=== PATIENT | female | born 1945 | race Caucasian/White ===

== ENCOUNTER → 2024-08-29 15:42 | Outpatient (REF) | payer OTHER, SELFPAY | LOC: HWRAD 15:42 | PROVIDERS: ATTENDING PHYSICIAN Internal Medicine Critical Care Medicine; FAMILY PHYSICIAN Family Medicine | DX: J44.9 Chronic obstructive pulmonary disease, unspecified (principal) | CPT/HCPCS: 71046 ==

== ENCOUNTER 2025-06-23 22:01 | Inpatient (IN) | payer OTHER, SELFPAY ==
[2025-06-23] VITALS (7 sets, daily range): BP systolic 98–163; BP diastolic 63–107; BMI 36.7; BMI 33.9
[2025-06-23 17:13] LABS: INR 1.08; PT 14.3 Sec (11.4-14.6)
[2025-06-23 17:17] LABS: ALT (SGPT) 25 U/L (0-35); AST (SGOT) 23 U/L (14-36); Albumin 4.0 g/dl (3.5-5.0); Alkaline Phosphatase 84 U/L (38-126); Blood Urea Nitrogen 40 mg/dl (7-17); Calcium 9.7 mg/dl (8.4-10.2); Carbon Dioxide 27 mmol/L (22-30); Chloride 107 mmol/L (98-107); Glucose 117 mg/dl (70-99); Potassium 4.0 mmol/L (3.5-5.1); Sodium 140 mmol/L (135-145); Total Protein 7.0 g/dl (6.3-8.2); eGFR > 60.00
[2025-06-23 18:01] LABS: Hematocrit 40.9 % (37.0-47.0); Hemoglobin 13.1 g/dL (12.0-16.0); Mean Corp Hgb Conc. 32.0 g/dL (33.0-37.0); Mean Corpuscular Volume 97.8 fL (81.0-99.0); Nucleated Red Blood Cells % 0 %; Platelet Count 222 10^3/uL (130-400); Red Cell Dist. Width 13.1 % (11.5-14.5)
[2025-06-23 18:07] LABS: D-Dimer 2.82 ug/mlFEU (0.00-0.50)
[2025-06-23 18:43] LABS: Troponin I 0.053 ng/ml
[2025-06-23] MEDS: BENADRYL 25 MG IV (19:13)
[2025-06-23] MEDS: SOLU-CORTEF 200 MG IV (19:13)
--- NOTE | 2025-06-23 21:02 | ED.GENMED ---
History of Present Illness
<German Doyle PA-C - Last Filed: 06/24/25 00:07>
General
Chief Complaint: Breathing Problem
Time Seen by Provider: 06/23/25 17:15
History of Present Illness
History of Present Illness:
80-year-old female with history of COPD, former tobacco use, and hypertension presents to the emergency department for evaluation of gradually worsening shortness of breath over the past 2 weeks. She states that 2 weeks ago she suffered a left
elbow dislocation and since that fall has been generally immobile. She has a distant history of PE after knee replacement surgery but states she was not anticoagulated for this. Denies chest pain but does report bilateral leg edema. No fevers or
chills.
Past History
<German Doyle PA-C - Last Filed: 06/24/25 00:07>
Past History
ED Past Medical History: Asthma, HTN and Other (Sleep apnea )
ED Past Surgical History: Appendectomy, Bowel resection (X2 for adhesions ), Cholecystectomy and Gynecological (Hysterectomy followed by an oophorectomy )
Patient has exhibited threatening behavior?: No
PSI?: No
Social History
Tobacco: Former smoker
Alcohol: Occasional
Personal:
Living: with family
Employment: Employed
Family History
Family History: Diabetes and Cancer; Negative Hypertension, Early CAD, Asthma or Sudden
Review of Systems
<German Doyle PA-C - Last Filed: 06/24/25 00:07>
Review of Systems
Allergies reviewed?: Yes
All Other Systems: ROS reviewed and negative except as documented in HPI and ROS
Phy Exam
<German Doyle PA-C - Last Filed: 06/24/25 00:07>
Physical Exam
Physical Exam:
GEN: Well appearing, NAD, WDWN
HEENT: Oral mucosa moist, no scleral icterus
Cardiac: Tachycardic, regular
Lung: Tachypneic with pursed lip breathing, clear lungs globally
MSK: Bilateral lower extremity edema
Skin: Good color, no pallor or jaundice, no rashes
Neuro: AO x3, moves all extremities freely
Psych: Calm, cooperative
Scores
<German Doyle PA-C - Last Filed: 06/24/25 00:07>
Heart Failure Risk
Heart Failure Risk Score: Not Applicable
Course
<German Doyle PA-C - Last Filed: 06/24/25 00:07>
Orders/Labs/Results
Orders:
Orders
06/23/25 Breakfast
Regular
At Your Request: Full Participation
06/23/25 16:45
Electrocardiogram (*1) Urgent
Reason for Study: Chest Pain
EKG- Treatment ONCE
06/23/25 16:52
Comprehensive Metabolic Panel Urgent
D-Dimer Urgent
Comment: ADD ON
Prothrombin Time Urgent
06/23/25 17:45
Add On- LAB Urgent
Tests Added?: D Dimer, BNP
06/23/25 17:53
Complete Blood Count/With Diff Urgent
NT-proBNP Urgent
Comment: ADD ON
Troponin I Urgent
06/23/25 18:18
CT Chest PE Study Urgent
Comment:
Reason For Exam: SOB, elevated d dimer
06/23/25 18:38
Diphenhydramine [Benadryl] 25 mg IV NOW STA
Hydrocortisone Sod Succinate [Solu-Cortef] 200 mg IV NOW STA
06/23/25 20:35
Heparin 8,000 units IV NOW STA
Nursing to Place Non Medication Order As Directed
Physician Order: PTT 6 hours after initial start of Heparin infusion
Above order entered?: Yes
06/23/25 20:41
Miscellaneous Order As Directed
Miscellaneous order: PTT 6 hours after initial start of Heparin infusion
06/23/25 20:45
Heparin 27972 Units/250 ml 25,000 units in 250 ml IV PER PROTOCOL
Weight to be used for heparin protocol in kilograms (kg):: 100.1
Protocol:: DVT/PE
PTT Goal Range to be used:: PTT 73 to 111 seconds
Order type:: Initial
INITIAL Infusion Dose (UNITS/KG/hr) & then follow protocol:: 18 units/kg/hr
Infusion Dose in UNITS/hr & then follow protocol (UNITS/hr):: 1,800
INFUSION RATE in mL/hr & then follow protocol (mL/hr):: 18
For DVT/PE algorithm, re-bolus for low PTT?: Yes
PTT less than or equal to 64 seconds:: Re-bolus 80 units/kg (max 10,000units). Increase by 400 units/hr
(+ 4mL/hr)
PTT 64.1 to 72.9 seconds:: Re-bolus 40 units/kg (max 5,000 units). Increase by 200 units/hr
(+ 2mL/hr)
PTT 73 to 111 seconds:: Target Range. No change in rate.
PTT 111.1 to 130.9 seconds:: Decrease rate by 200 units/hr (- 2 mL/hr)
PTT 131 to 199.9 seconds:: HOLD for 1 hr. Then decrease by 300 units/hr (- 3mL/hr)
PTT greater than or equal to 200 seconds:: HOLD for 2 hrs & Notify Provider. Then decrease by 400 units/hr
(- 4mL/hr)
Lab follow-up:: Each change, PTT q6h until 2 consecutive are therapeutic. Then
PTT daily.
06/23/25 20:49
PTT Urgent
Comment: Obtain baseline before beginning heparin infusion if not already collected
06/23/25 21:10
Heparin 4,000 units IV PRN PRN
Heparin 8,000 units IV PRN PRN
06/23/25 21:35
Admit/Transfer Patient As Directed
Co-Sign Provider:
Level of Care: Inpatient admission
Assign to:: IMU- Intermediate Care
Physician / Group: jose
Diagnosis: acute hypoxia
Reason for Hospitalization: acute hypoxia secondary to PE
Expected length of stay greater than two midnights?: Yes
ELOS- Estimated Length of Stay in days: 3
I certify the patient meets the requirements for IP care: Yes
PRN Pain Medication Management As Directed
May give lesser potent ordered pain med per pt: Yes
preference::
Protocol:: Medication orders for pain may be administered in a
manner that supports deferring to patient preference
when the pt is:
- Requesting an ordered lesser potent pain medication.
Least to most potent pain medications are defined
as: acetaminophen < NSAID < tramadol < opioids
(morphine, oxycodone, hydromorphone).
- Requesting a lesser dose of the same medication IF
ORDERED.
- Requesting a less intrusive route of administration
if both routes are prescribed by the provider (PO <
IV).
06/23/25 21:37
Code Status As Directed
Resuscitation Status: Limited DNR
Limited DNR: -No intubation
06/23/25 22:51
Acetaminophen [Tylenol] 650 mg PO Q4HPRN PRN
Gabapentin [Neurontin] 200 mg PO DAILYPRN PRN mild pain
Montelukast Sodium [Singulair] 10 mg PO HS
06/23/25 22:51
Echo 2D MMode Color/Doppler Routine
Reason for Study: pulmonary embolism
Heparin Protocol- PTT Orders As Directed
PTT per Heparin protocol: -Obtain CBC and baseline PTT - if not already collected.
-Obtain PTT 6 hours from start of infusion. Then, every 6 hours until 2 consecutive
PTT's are therapeutic. Then, PTT Daily.
-With each rate change, obtain PTT every 6 hours until 2 consecutive PTT's are
therapeutic. Then, PTT Daily.
Activity As Directed
Activity Level: As Tolerated
Bladder Scan As Directed
Follow Bladder Retention/Intermittent Cath Algorithm?: Yes
Frequency: Per Retention Algorithm
Comment: as per intermittent urinary catheter algorithm
Bladder Scan As Directed
Follow Bladder Retention/Intermittent Cath Algorithm?: Yes
PRN if no void in __ hours: 6
Frequency: Per Retention Algorithm
If Bladder Scan Result >: 400
then:: Straight cath
Intake/ Output As Directed
Frequency: Per unit guidelines
Notify MD As Directed
Notify physician if: PTT is greater than or equal to 200.
Straight Cath As Directed
Frequency: Per Retention Algorithm
Additional Instructions: as per intermittent urinary catheter algorithm
Straight Cath As Directed
Frequency: Per Retention Algorithm
Additional Instructions: straight cath as needed per acute urinary retention algorithm for 24 hrs
Additional Instructions: for bladder scan greater than 400 mL
Vital Signs As Directed
Frequency: Per unit guidelines
Cpap [RESP] Routine
Patient to use own unit?: No
Set Pressure (cm H2O): 4
O2 Therapy [RESP] Routine
Titrate/Wean O2 to maintain O2 sat greater than (%): 90
Pt Eval And Treat Routine
Activity Level: As Tolerated
US Periph Venous LOWER Ext Brett Routine
Comment:
Reason For Exam: DVT/PE
06/23/25 23:26
Troponin I Q4H
06/24/25 02:51
Troponin I Q4H
06/24/25 03:45
PTT Urgent
Comment: heparin gtt
06/24/25 06:00
Complete Blood Count/No Diff IN AM
06/24/25 06:51
Troponin I Q4H
06/24/25 08:00
Albuterol Nebs [Ventolin Nebules] 2.5 mg INH R QID
Cetirizine HCl [Zyrtec] 10 mg PO DAILY
Cholecalciferol (Vitamin D3) [VITAMIN D3 (cholecalciferol)] 50 mcg PO DAILY
Lisinopril [Zestril] 10 mg PO DAILY
Tiotropium [place] 2.5 Mcg [Spiriva Respimat 2.5 Mcg] 2 puff INH R DAILY
06/25/25 06:00
Complete Blood Count/No Diff IN AM
Complete Blood Count/No Diff Q2D
Comment: notify provider: Platelet count < 130,000 or decrease by 50% from baseline
06/26/25 06:00
Complete Blood Count/No Diff IN AM
06/27/25 06:00
Complete Blood Count/No Diff Q2D
Comment: notify provider: Platelet count < 130,000 or decrease by 50% from baseline
06/29/25 06:00
Complete Blood Count/No Diff Q2D
Comment: notify provider: Platelet count < 130,000 or decrease by 50% from baseline
07/01/25 06:00
Complete Blood Count/No Diff Q2D
Comment: notify provider: Platelet count < 130,000 or decrease by 50% from baseline
07/03/25 06:00
Complete Blood Count/No Diff Q2D
Comment: notify provider: Platelet count < 130,000 or decrease by 50% from baseline
07/05/25 06:00
Complete Blood Count/No Diff Q2D
Comment: notify provider: Platelet count < 130,000 or decrease by 50% from baseline
07/07/25 06:00
Complete Blood Count/No Diff Q2D
Comment: notify provider: Platelet count < 130,000 or decrease by 50% from baseline
07/09/25 06:00
Complete Blood Count/No Diff Q2D
Comment: notify provider: Platelet count < 130,000 or decrease by 50% from baseline
Abnormal Lab Results
06/23/25 06/23/25
16:52 17:53
WBC 14.9 H 10^3/uL
(4.8-10.8)
RBC 4.18 L 10^6/uL
(4.20-5.40)
MCH 31.3 H pg
(27.0-31.0)
MCHC 32.0 L g/dL
(33.0-37.0)
Abs Immat Gran (auto) 0.1 H 10^3/uL
(0-0.05)
Absolute Neuts (auto) 12.6 H 10^3/uL
(1.4-6.5)
Immature Gran % 0.7 H %
(0-0.5)
Neutrophils % 84.4 H %
(42.2-75.2)
Lymphocytes % 10.1 L %
(20.5-51.1)
D-Dimer 2.82 H ug/mlFEU
(0.00-0.50)
BUN 40 H mg/dl
(7-17)
Glucose 117 H mg/dl
(70-99)
Troponin I 0.053 H* ng/ml
06/23/25 17:53
06/23/25 16:52
Vital Signs
Initial and Last Documented VS:
Initial Vital Signs
Temp Pulse Resp BP Pulse Ox
98.4 F 115 20 112/77 95
06/23/25 16:42 06/23/25 16:42 06/23/25 16:42 06/23/25 16:42 06/23/25 16:42
Last Documented Vital Signs
Temp Pulse Resp BP Pulse Ox
98.1 F 109 24 163/93 94
06/23/25 22:54 06/23/25 22:30 06/23/25 22:30 06/23/25 22:00 06/23/25 23:07
<Johan Lisa, DO - Last Filed: 06/23/25 21:17>
Orders/Labs/Results
Orders:
Orders
06/23/25 Breakfast
Regular
At Your Request: Full Participation
06/23/25 16:45
Electrocardiogram (*1) Urgent
Reason for Study: Chest Pain
EKG- Treatment ONCE
06/23/25 16:52
Comprehensive Metabolic Panel Urgent
D-Dimer Urgent
Comment: ADD ON
Prothrombin Time Urgent
06/23/25 17:45
Add On- LAB Urgent
Tests Added?: D Dimer, BNP
06/23/25 17:53
Complete Blood Count/With Diff Urgent
NT-proBNP Urgent
Comment: ADD ON
Troponin I Urgent
06/23/25 18:18
CT Chest PE Study Urgent
Comment:
Reason For Exam: SOB, elevated d dimer
06/23/25 18:38
Diphenhydramine [Benadryl] 25 mg IV NOW STA
Hydrocortisone Sod Succinate [Solu-Cortef] 200 mg IV NOW STA
06/23/25 20:35
Heparin 8,000 units IV NOW STA
Nursing to Place Non Medication Order As Directed
Physician Order: PTT 6 hours after initial start of Heparin infusion
Above order entered?: Yes
06/23/25 20:41
Miscellaneous Order As Directed
Miscellaneous order: PTT 6 hours after initial start of Heparin infusion
06/23/25 20:45
Heparin 34898 Units/250 ml 25,000 units in 250 ml IV PER PROTOCOL
Weight to be used for heparin protocol in kilograms (kg):: 100.1
Protocol:: DVT/PE
PTT Goal Range to be used:: PTT 73 to 111 seconds
Order type:: Initial
INITIAL Infusion Dose (UNITS/KG/hr) & then follow protocol:: 18 units/kg/hr
Infusion Dose in UNITS/hr & then follow protocol (UNITS/hr):: 1,800
INFUSION RATE in mL/hr & then follow protocol (mL/hr):: 18
For DVT/PE algorithm, re-bolus for low PTT?: Yes
PTT less than or equal to 64 seconds:: Re-bolus 80 units/kg (max 10,000units). Increase by 400 units/hr
(+ 4mL/hr)
PTT 64.1 to 72.9 seconds:: Re-bolus 40 units/kg (max 5,000 units). Increase by 200 units/hr
(+ 2mL/hr)
PTT 73 to 111 seconds:: Target Range. No change in rate.
PTT 111.1 to 130.9 seconds:: Decrease rate by 200 units/hr (- 2 mL/hr)
PTT 131 to 199.9 seconds:: HOLD for 1 hr. Then decrease by 300 units/hr (- 3mL/hr)
PTT greater than or equal to 200 seconds:: HOLD for 2 hrs & Notify Provider. Then decrease by 400 units/hr
(- 4mL/hr)
Lab follow-up:: Each change, PTT q6h until 2 consecutive are therapeutic. Then
PTT daily.
06/23/25 20:49
PTT Urgent
Comment: Obtain baseline before beginning heparin infusion if not already collected
06/23/25 21:10
Heparin 4,000 units IV PRN PRN
Heparin 8,000 units IV PRN PRN
06/23/25 21:35
Admit/Transfer Patient As Directed
Co-Sign Provider:
Level of Care: Inpatient admission
Assign to:: IMU- Intermediate Care
Physician / Group: jose
Diagnosis: acute hypoxia
Reason for Hospitalization: acute hypoxia secondary to PE
Expected length of stay greater than two midnights?: Yes
ELOS- Estimated Length of Stay in days: 3
I certify the patient meets the requirements for IP care: Yes
PRN Pain Medication Management As Directed
May give lesser potent ordered pain med per pt: Yes
preference::
Protocol:: Medication orders for pain may be administered in a
manner that supports deferring to patient preference
when the pt is:
- Requesting an ordered lesser potent pain medication.
Least to most potent pain medications are defined
as: acetaminophen < NSAID < tramadol < opioids
(morphine, oxycodone, hydromorphone).
- Requesting a lesser dose of the same medication IF
ORDERED.
- Requesting a less intrusive route of administration
if both routes are prescribed by the provider (PO <
IV).
06/23/25 21:37
Code Status As Directed
Resuscitation Status: Limited DNR
Limited DNR: -No intubation
06/23/25 22:51
Acetaminophen [Tylenol] 650 mg PO Q4HPRN PRN
Gabapentin [Neurontin] 200 mg PO DAILYPRN PRN mild pain
Montelukast Sodium [Singulair] 10 mg PO HS
06/23/25 22:51
Echo 2D MMode Color/Doppler Routine
Reason for Study: pulmonary embolism
Heparin Protocol- PTT Orders As Directed
PTT per Heparin protocol: -Obtain CBC and baseline PTT - if not already collected.
-Obtain PTT 6 hours from start of infusion. Then, every 6 hours until 2 consecutive
PTT's are therapeutic. Then, PTT Daily.
-With each rate change, obtain PTT every 6 hours until 2 consecutive PTT's are
therapeutic. Then, PTT Daily.
Activity As Directed
Activity Level: As Tolerated
Bladder Scan As Directed
Follow Bladder Retention/Intermittent Cath Algorithm?: Yes
Frequency: Per Retention Algorithm
Comment: as per intermittent urinary catheter algorithm
Bladder Scan As Directed
Follow Bladder Retention/Intermittent Cath Algorithm?: Yes
PRN if no void in __ hours: 6
Frequency: Per Retention Algorithm
If Bladder Scan Result >: 400
then:: Straight cath
Intake/ Output As Directed
Frequency: Per unit guidelines
Notify MD As Directed
Notify physician if: PTT is greater than or equal to 200.
Straight Cath As Directed
Frequency: Per Retention Algorithm
Additional Instructions: as per intermittent urinary catheter algorithm
Straight Cath As Directed
Frequency: Per Retention Algorithm
Additional Instructions: straight cath as needed per acute urinary retention algorithm for 24 hrs
Additional Instructions: for bladder scan greater than 400 mL
Vital Signs As Directed
Frequency: Per unit guidelines
Cpap [RESP] Routine
Patient to use own unit?: No
Set Pressure (cm H2O): 4
O2 Therapy [RESP] Routine
Titrate/Wean O2 to maintain O2 sat greater than (%): 90
Pt Eval And Treat Routine
Activity Level: As Tolerated
US Periph Venous LOWER Ext Brett Routine
Comment:
Reason For Exam: DVT/PE
06/23/25 23:26
Troponin I Q4H
06/24/25 02:51
Troponin I Q4H
06/24/25 03:45
PTT Urgent
Comment: heparin gtt
06/24/25 06:00
Complete Blood Count/No Diff IN AM
06/24/25 06:51
Troponin I Q4H
06/24/25 08:00
Albuterol Nebs [Ventolin Nebules] 2.5 mg INH R QID
Cetirizine HCl [Zyrtec] 10 mg PO DAILY
Cholecalciferol (Vitamin D3) [VITAMIN D3 (cholecalciferol)] 50 mcg PO DAILY
Lisinopril [Zestril] 10 mg PO DAILY
Tiotropium [place] 2.5 Mcg [Spiriva Respimat 2.5 Mcg] 2 puff INH R DAILY
06/25/25 06:00
Complete Blood Count/No Diff IN AM
Complete Blood Count/No Diff Q2D
Comment: notify provider: Platelet count < 130,000 or decrease by 50% from baseline
06/26/25 06:00
Complete Blood Count/No Diff IN AM
06/27/25 06:00
Complete Blood Count/No Diff Q2D
Comment: notify provider: Platelet count < 130,000 or decrease by 50% from baseline
06/29/25 06:00
Complete Blood Count/No Diff Q2D
Comment: notify provider: Platelet count < 130,000 or decrease by 50% from baseline
07/01/25 06:00
Complete Blood Count/No Diff Q2D
Comment: notify provider: Platelet count < 130,000 or decrease by 50% from baseline
07/03/25 06:00
Complete Blood Count/No Diff Q2D
Comment: notify provider: Platelet count < 130,000 or decrease by 50% from baseline
07/05/25 06:00
Complete Blood Count/No Diff Q2D
Comment: notify provider: Platelet count < 130,000 or decrease by 50% from baseline
07/07/25 06:00
Complete Blood Count/No Diff Q2D
Comment: notify provider: Platelet count < 130,000 or decrease by 50% from baseline
07/09/25 06:00
Complete Blood Count/No Diff Q2D
Comment: notify provider: Platelet count < 130,000 or decrease by 50% from baseline
Abnormal Lab Results
06/23/25 06/23/25
16:52 17:53
WBC 14.9 H 10^3/uL
(4.8-10.8)
RBC 4.18 L 10^6/uL
(4.20-5.40)
MCH 31.3 H pg
(27.0-31.0)
MCHC 32.0 L g/dL
(33.0-37.0)
Abs Immat Gran (auto) 0.1 H 10^3/uL
(0-0.05)
Absolute Neuts (auto) 12.6 H 10^3/uL
(1.4-6.5)
Immature Gran % 0.7 H %
(0-0.5)
Neutrophils % 84.4 H %
(42.2-75.2)
Lymphocytes % 10.1 L %
(20.5-51.1)
D-Dimer 2.82 H ug/mlFEU
(0.00-0.50)
BUN 40 H mg/dl
(7-17)
Glucose 117 H mg/dl
(70-99)
Troponin I 0.053 H* ng/ml
06/23/25 17:53
06/23/25 16:52
Vital Signs
Initial and Last Documented VS:
Initial Vital Signs
Temp Pulse Resp BP Pulse Ox
98.4 F 115 20 112/77 95
06/23/25 16:42 06/23/25 16:42 06/23/25 16:42 06/23/25 16:42 06/23/25 16:42
Last Documented Vital Signs
Temp Pulse Resp BP Pulse Ox
98.1 F 109 24 163/93 94
06/23/25 22:54 06/23/25 22:30 06/23/25 22:30 06/23/25 22:00 06/23/25 23:07
<German Doyle PA-C - Last Filed: 06/24/25 00:07>
MDM/Problems Addressed
MDM/Problems Addressed:
Due to elevated D-dimer and as well as elevated cardiac enzymes the patient was sent for a CT of the chest which confirmed bilateral PEs. She does have evidence for mild right heart strain however is not hemodynamically unstable to warrant
thrombolysis at this juncture. IV heparin initiated and she will be admitted to the hospitalist service for further management
<German Doyle PA-C - Last Filed: 06/24/25 00:07>
Comment
Comment:
EKG independently interpreted by me shows a sinus tachycardia with nonspecific ST depressions
*Pulse Oximetry
SaO2: 92
Oxygen Mode of Delivery: Room air
<Johan Lisa DO - Last Filed: 06/23/25 21:17>
*Radiology
Radiology exam reviewed: radiology read reviewed
*Pulse Oximetry
SaO2: 89
Patient hypoxic: yes
*EKG
Interpreted by ED Provider?: Yes
Interpretation: abnormal
Comparison EKG: no comparison EKG present
Heart Rate: 78
Rate: normal
Rhythm: sinus
Ischemia: non-specific ST changes
*Engine Assembly Supervisor Interpretation
Rate: normal
Interpretation: normal
Heart Rate: 78
Rhythm: sinus
*Critical Care Note
Total Time (30-74mins, 75-104mins- exclusive of procedures): 32
ED Attending Note
<German Doyle PA-C - Last Filed: 06/24/25 00:07>
-
Portions of this chart may have been created with voice recognition software.� Occasional wrong word or��sound alike� substitutions may have occurred due to the inherent limitations of voice recognition software.
<Johan Lisa DO - Last Filed: 06/23/25 21:17>
ED Attending Note
Patient seen and examined by attending physician: Yes
I performed the substantive portion of visit, reviewed & personally made and approve the management plan that is documented in note by myself or KWAME.: Yes
ED Attending Note:
Seen with PA examined independently agree with assessment and plan dyspneic appearing female, had a fall seen at a hospital in [place] had an elbow dislocation relocated,
Discharge Plan
Departure
Patient Disposition: Admit
Date of Disposition: 06/23/25
Time of Disposition: 21:08
Admit to: Telemetry
Presentation/result/management discussed w/ accepting MD/DO: Hospitalist
Discharge Problem:
Bilateral pulmonary embolism
Interventions
Interventions:
*Risk Screen - Suicide Last Done: 06/23/25 22:49
*General Assessment Last Done: 06/23/25 17:34
*Neglect/Abuse Screening Last Done: 06/23/25 17:34
*ED- Fall Risk Assessment Last Done: 06/23/25 17:34
*ED COVID-19 Vaccine History Last Done: 06/23/25 17:34
*ED Influenza Vaccine History Last Done: 06/23/25 17:34
*Nursing Disposition Last Done: 06/23/25 22:38
ED- Cardiac Assessment Last Done: 06/23/25 17:36
ED- Pulmonary Assessment Last Done: 06/23/25 17:36
Discharge Date and Time
Discharge Date/Time: 06/23/25 22:38
--- NOTE | 2025-06-23 21:11 | HPS.HSE ---
Addendum entered and electronically signed by John Braxton DO 06/23/25 22:00:
Patient seen and examined independently. Agree with findings and plan as set forth by VICTOR M Mullen.
Patient is a 80y F with PMH significant for COPD, hypertension and prior / provoked PE who presents to ED complaining of SOB for about 2 weeks. Patient drove 1 1/2 hours to the [facility] two weeks ago. She suffered a fall at that time and
dislocation of the L elbow (reduced at a local ED). She then rode another 1 1/2 hours home. Patient states that she has had SOB and LE swelling since that time. With persistent symptoms she presented to the ED today for evaluation.
CT done in the ED shows multiple, bilateral PEs.
Ass:
Multiple, Bilateral Pulmonary Emboli
Acute Hypoxemic Respiratory Insufficiency secondary to the above
Leukocytosis - likely reactive
Non-ID Troponin elevation / BNP elevation secondary to PE and heart strain
COPD without Acute Exacerbation
Benign Hypertension
EVAN on CPAP
Obesity due to excess calories
Plan:
Admit for further evaluation and treatment.
Hemodynamically stable and oxygenation is satisfactory on supplemental O2.
IV heparin infusion.
Follow for any new / worsening symptoms.
Echo, LE Dopplers in the AM.
Pulmonary evaluation for additional recommendations.
Transition to OAC prior to discharge.
Continue usual home meds for hypertension / COPD.
Original Note:
Family Physician
-
Family Physician: Jay Thompson
Chief Complaint
-
sob
History of Present Illness
80-year-old female with history of COPD, former tobacco use, and hypertension,PE presents to the emergency department for evaluation of gradually worsening shortness of breath over the past 2 weeks. patient stated sob worse with exertion. she drove
to [facility] two weeks ago. it was an hour and half drive. patient had a fall at [facility] and dislocated the left elbow. since the fall, she was ambulatory at home but was not going for work. patient stated progressively sob, which was worse with exertion.
she noticed bilateral LE edema. . she complained of dizzy and she was nauseous. denied ODOM. denied fever, chills, cough, congestion,chest pain. denied abdominal pain,diarrhea. denied dysuria or hematuria. She has a distant history of PE after knee
replacement surgery but states she was not anticoagulated for this.
CT with PE, initiated on heparin drip.admitting for further management.
Medical History
Past Medical History
Past Medical History: Reports Other
Additional Past Medical History:
Mitral insufficiency, gastroparesis, gout, IBS, COPD, obstructive sleep apnea, herpes zoster, hypertension hyperlipidemia fatty liver polyneuropathy constipation chronic insomnia, DJD, hiatal hernia, asthma gastritis, interstitial cystitis
chickenpox colitis gastroparesis pneumonia
Past Surgical History: Reports Other
Additional Past Surgical History:
Appendectomy, bowel surgery, cholecystectomy, colon surgery, hysterectomy, lumpectomy, right knee replacement
Social History
Tobacco: Former Smoker
Alcohol: None
Drug: None
Family History
Family History: Not pertinent
Allergies / Home Medications
Allergies reflects when Allergies were last updated in [facility].
Home Medications with original date entered in [facility]
Allergy/Medication List:
Allergies
Allergy/AdvReac Type Severity Reaction Status Date / Time
iodine Allergy Hives-'hives Verified 06/23/25 21:06
on my
brain'
levofloxacin (From Levaquin) Allergy Arm/leg Verified 06/23/25 16:42
weakness
morphine (Morphine) Allergy Shortness Verified 06/23/25 21:06
of
Breath-'throat
closed'
Sulfa (Sulfonamide Allergy Hives-unsure Verified 06/23/25 21:06
Antibiotics) which
Sulfa
medication
caused this
Home Medications
albuterol sulfate 90 mcg/actuation aerosol inhaler 2 puff inhalation R Q6HPRN PRN sob/wheezing 09/20/22
arformoterol 15 mcg/2 mL solution for nebulization 15 mcg inhalation R BID Lung/Breathing Issues 06/23/25
cetirizine 10 mg tablet (Zyrtec) 10 mg PO DAILY Allergies 06/23/25
cholecalciferol (vitamin D3) 50 mcg (2,000 unit) capsule (Vitamin D3) 50 mcg PO DAILY Supplement 06/23/25
elderberry fruit 350 mg capsule 350 mg PO HS Supplement 06/23/25
gabapentin 100 mg capsule 200 mg PO DAILYPRN PRN mild pain 06/23/25
ibuprofen 600 mg tablet 600 mg PO TIDPRN PRN mild pain 06/23/25
lisinopril 10 mg tablet 10 mg PO DAILY Blood Pressure 06/23/25
montelukast 10 mg tablet (Singulair) 10 mg PO HS Allergies 06/23/25
revefenacin 175 mcg/3 mL solution for nebulization (Yupelri) 175 mcg inhalation R DAILY@1200 Lung/Breathing Issues 06/23/25
Review of Systems
-
Constitutional: Reports No Symptoms
EENT: Reports No Symptoms
Respiratory: Reports Trouble Breathing
Cardiac: Reports No Symptoms
Abdomen/GI: Reports No Symptoms
: Reports No Symptoms
Musculoskeletal: Reports No Symptoms
Skin: Reports No Symptoms
Neurological: Reports No Symptoms
Endocrine: Reports No Symptoms
Hematologic/Lymphatic: Reports No Symptoms
Psych: Reports No Symptoms
Physical Exam
Vital Signs
Vital Signs
Temp Pulse Resp BP Pulse Ox
98.3 F 111 18 145/107 92
06/23/25 17:39 06/23/25 20:45 06/23/25 20:45 06/23/25 20:00 06/23/25 21:06
Physical Exam
General: Well Developed, Well Nourished and No Apparent Distress
HEENT: NormoCephalic, Moist mucous membranes and Atraumatic
Respiratory: Clear
Cardiac: S1/S2 and Regular Rhythm; No Murmur or Rub
GI: Soft, Non Tender, Non Distended and Normal Bowel Sounds; No Organomegaly
Rectal: Deferred by Provider
Musculoskeletal: No Clubbing, No Cyanosis and Other (b/l LE edema)
Skin: No Rash
Neuro: AO x 3 and Nonfocal/grossly intact
Psych: Calm
Laboratory Results
-
06/23/25 17:53
06/23/25 16:52
Laboratory Results
PT 14.3 Sec (11.4-14.6) 06/23/25 16:52
INR 1.08 06/23/25 16:52
Total Bilirubin 0.5 mg/dl (0.2-1.3) 06/23/25 16:52
AST 23 U/L (14-36) 06/23/25 16:52
ALT 25 U/L (0-35) 06/23/25 16:52
Alkaline Phosphatase 84 U/L (38-126) 06/23/25 16:52
Troponin I 0.053 ng/ml H* 06/23/25 17:53
Data Reviewed
-
CT Scan: Report Reviewed by me
Lab Data: Labs Reviewed by me
Impression/Plan
-
# acute hypoxia secondary to Bilateral PE with mild right heart strain
- Chest CT with the impression Multiple bilateral pulmonary emboli. Moderate clot burden. Mild right heart strain.Findings suggesting mild pulmonary hypertension.If the patient has emphysema, patient should be assessed for an annual low dose lung
cancer CT program, as pulmonary emphysema is an independent risk factor for lung cancer.
-iv heparin drip continued
-obtain ECHO
-duplex LE
# Leukocytosis likely reactive
- WBCs 14.9, patient is afebrile
Continue to monitor
# Elevated Trop likely demand ischemia in the setting of PE
-Trop 0.053, continue to trend Trope
-Denies chest pain
#hxt of COPD
-not in acute exacerbation
-nebs continued
-Singulair continued
#essential HTN
-lisinopril continued
#EVAN
-cpap at hs
#CODE status
-CPR with no intubation
[2025-06-23 21:14] LABS: APTT 30.1 Sec (23.4-35.0)
[2025-06-23] MEDS: HEPARIN 8000 UNITS IV (21:42)
[2025-06-23] MEDS: HEPARIN 25000 UNITS/250 ML IV (21:43)
[2025-06-23] MEDS: SINGULAIR 10 MG PO (23:01)
[2025-06-24] VITALS (13 sets, daily range): BP systolic 117–162; BP diastolic 79–122; PULSE 100; O2SAT 96
[2025-06-24 00:16] LABS: Troponin I 0.048 ng/ml
--- NOTE | 2025-06-24 00:49 | VATNOTE ---
ASSESSED PT FOR MIDLINE ACCESS AT REQUEST OF PCN. PRIMARY REASON CURRENTLY IS FOR FREQUENT LAB DRAWS.PT NOT COMPLETELY OPPOSED TO ML BUT WOULD PREFER TO AVOID IT IF POSSIBLE. NO CURRENT NEED AT THIS TIME . WILL ASSIST WITH NEXT SCHEDULED LAB DRAW AT
0330 AND REVISIT POTENTIAL INDIDCATION FOR ML IN AM. PT AND PCN AWARE AND IN AGREEMENT WITH OF PLAN OF CARE. VAT TO FOLLOW.
--- NOTE | 2025-06-24 03:40 | PTCARENOTE ---
Pt oriented, cooperative with care. Pw in place for incontinence. Heparin gtt maintained through R AC IV. Pt does c/o some mild L arm pain d/t previous elbow dislocation. Denies medications at this time. Attempted CPAP, but only able to tolerate for
short period of time. 2L NC in place. Call white within reach. Care ongoing.
[2025-06-24] MEDS: TYLENOL 650 MG PO ×3 (03:52→20:47)
[2025-06-24 03:56] LABS: Hematocrit 33.0 % (37.0-47.0); Hemoglobin 11.3 g/dL (12.0-16.0); Mean Corp Hgb Conc. 34.2 g/dL (33.0-37.0); Mean Corpuscular Volume 92.4 fL (81.0-99.0); Platelet Count 196 10^3/uL (130-400); Red Cell Dist. Width 12.8 % (11.5-14.5)
[2025-06-24 04:42] LABS: APTT > 200 Sec (23.4-35.0)
[2025-06-24] MEDS: VENTOLIN NEBULES 2.5 MG INH ×4 (07:44→19:14)
[2025-06-24] MEDS: SPIRIVA RESPIMAT 2.5 MCG 2 PUFF INH (07:45)
[2025-06-24] MEDS: ZESTRIL 10 MG PO (08:24)
[2025-06-24] MEDS: VITAMIN D3 (cholecalciferol) 50 MCG PO (08:24)
[2025-06-24] MEDS: ZYRTEC 10 MG PO (08:24)
--- NOTE | 2025-06-24 09:56 | CON.PUL ---
Consultation
Consultation Request
Date/Time Consultation Requested: 06/24/2025-7:30 AM
Date/Time Consultation Performed: 06/24/2025-8 AM
Requesting Provider: Hospitalist
Performing Provider: Dr. Joseph
Reason for Consultation: shortness of breath
Medical History
-
Chief Complaint: Shortness of breath
History of Present Illness:
80-year-old former smoking female with a history of COPD, hypertension, EVAN/CPAP, obesity, hypertension, lipidemia, insomnia who states she had a 'small clot in her lungs' postop knee surgery presented with increasing shortness of breath, dyspnea on
exertion, and found to have clot burden pulmonary emboli-pulmonary consulted for pulmonary emboli 06/24/2025. The patient sees Dr. Mcguire for underlying COPD. She was last seen in April and has a July appointment. She fell and injured
her left foot. She has been more sedentary since that time. Over the last 2 weeks she has noticed significant increase in breath, leg swelling, and diaphoresis with mild to moderate physical activity. She denies any chest pain, chest tightness,
mopped assist, pleurisy, abdominal pain, nausea but has got chronic constipation she admitted to increased lower extremity swelling but no focal weakness.
Past Medical History
Past Medical History: None (COPD. EVAN/CPAP. Gastroparesis. Hypertension. Hyperlipidemia. Fatty liver. Polyneuropathy. Chronic constipation. Chronic insomnia. Hiatal hernia. Interstitial cystitis. Appendectomy. Cholecystectomy. Colon
surgery. Hysterectomy. Lumpectomy. Right knee replacement.)
Social History
Tobacco: Former Smoker (Quit 54 years old)
Alcohol: None
Drug: None
Living: With Family
Occupational Exposures: No known asbestos exposure
Environmental Exposures: No known tuberculosis exposure
Family History
Family History: Reviewed & Not Pertinent (No family history of clots, father-COPD, mother colon cancer with)
Allergies / Home Medications
Allergies
Allergy/AdvReac Type Severity Reaction Status Date / Time
iodine Allergy Hives-'hives Verified 06/23/25 21:06
on my
brain'
levofloxacin (From Levaquin) Allergy Arm/leg Verified 06/23/25 16:42
weakness
morphine (Morphine) Allergy Shortness Verified 06/23/25 21:06
of
Breath-'throat
closed'
Sulfa (Sulfonamide Allergy Hives-unsure Verified 06/23/25 21:06
Antibiotics) which
Sulfa
medication
caused this
Home Medications
�Medication �Instructions �Recorded �Confirmed �Last Taken �Type
albuterol sulfate 90 mcg/actuation 2 puff inhalation R Q6HPRN PRN 09/20/22 06/23/25 Unknown History
aerosol inhaler sob/wheezing
arformoterol 15 mcg/2 mL solution 15 mcg inhalation R BID 06/23/25 06/23/25 06/22/25 History
for nebulization Lung/Breathing Issues
cetirizine 10 mg tablet (Zyrtec) 10 mg PO DAILY Allergies 06/23/25 06/23/25 06/22/25 History
cholecalciferol (vitamin D3) 50 50 mcg PO DAILY Supplement 06/23/25 06/23/25 06/22/25 History
mcg (2,000 unit) capsule (Vitamin
D3)
elderberry fruit 350 mg capsule 350 mg PO HS Supplement 06/23/25 06/23/25 06/22/25 History
gabapentin 100 mg capsule 200 mg PO DAILYPRN PRN mild pain 06/23/25 06/23/25 Unknown History
ibuprofen 600 mg tablet 600 mg PO TIDPRN PRN mild pain 06/23/25 06/23/25 06/22/25 History
lisinopril 10 mg tablet 10 mg PO DAILY Blood Pressure 06/23/25 06/23/25 06/22/25 History
montelukast 10 mg tablet 10 mg PO HS Allergies 06/23/25 06/23/25 06/22/25 History
(Singulair)
revefenacin 175 mcg/3 mL solution 175 mcg inhalation R DAILY@1200 06/23/25 06/23/25 06/22/25 History
for nebulization (Yupelri) Lung/Breathing Issues
Review of Systems
-
Unable to Obtain full review of systems at this time due to: Other (Per HPI)
Vitals / Labs / Diagnostic Testing
Vital Signs
Temp Pulse Resp BP Pulse Ox
97.3 F 88 23 151/83 94
06/24/25 07:25 06/24/25 08:24 06/24/25 07:52 06/24/25 08:24 06/24/25 07:52
Lab Data
06/24/25 03:49
06/23/25 16:52
Laboratory Results
06/23/25 06/23/25 06/24/25
16:52 20:49 03:49
PT 14.3
INR 1.08
APTT 30.1 > 200 H*
Diagnostic Testing:
Physical Exam
-
Exam:
Well-nourished and well-developed in no apparent distress
HEENT-atraumatic, normocephalic
Neck-supple, no JVD, no bruit
Heart-regular rate and rhythm-no murmurs, rubs or gallops
Chest-clear to auscultation, no wheezes, crackles
Back-no tenderness
Abdomen-soft, nontender, nondistended, no hepatosplenomegaly
Extremities-no cyanosis, clubbing,, bilateral lower extremity edema
Integument-intact, no rashes, lesions or ecchymosis
Neurology-alert and oriented, nonfocal motor and sensory exam, no increased P2 or RV heave bilateral lower
Assessment
-
80-year-old former smoking female with a history of COPD, hypertension, EVAN/CPAP, obesity, hypertension, lipidemia, insomnia who states she had a 'small clot in her lungs' postop knee surgery presented with increasing shortness of breath, dyspnea on
exertion, and found to have clot burden pulmonary emboli-pulmonary consulted for pulmonary emboli 06/24/2025.
Bilateral significant clot burden pulmonary emboli
Suspect provoked-sedentary after left elbow injury
PESI [id number] IV-high risk previous
Provoked 'small PE after knee surgery
Mildly elevated troponin-0.5, proBNP-5140
Mild leukocytosis
Hkhqxh-[id number]-[id number] 11.3
Mild hyperglycemia
Conditions present prior to admission:
COPD-follows Maintained on albuterol, nebulizers-Brovana and Yupelri and azithromycin 250 mg every other day, declined pulmonary rehab
Seasonal allergies
Former smoker
History of pulmonary embolism-postop knee
Pulmonary nodule-right lower lobe 2019 seen in [facility]-no further testing needed
GERD
Diverticulosis
EVAN/CPAP-also on Nuvigil for persistent daytime some
Gastroparesis.
Hypertension.
Hyperlipidemia.
Fatty liver.
Polyneuropathy.
Chronic constipation.
Chronic insomnia.
Hiatal hernia.
Interstitial cystitis.
Appendectomy. Cholecystectomy. Colon surgery. Hysterectomy. Lumpectomy. Right knee replacement.
Plan
History consistent with probable provoked pulmonary embolism but at least 2 weeks duration post fall/left elbow injury
Radiographs, echocardiogram, pulmonary function testing and sleep studies are summarized below
Patient will be admitted to telemetry for close observation
Supplemental oxygen as needed
Aspiration precautions
Incentive spirometry
CT chest personally reviewed-summarized below
Check echocardiogram
Check lower extremity ultrasound
May need eventual hypercoagulable workup-suspect provoked clot, however, this is her second clot-first 1 likely provoked postop anemia as well
Full PESI and sPESI summarized above
Heparin drip or Lovenox 1 mg/kg every 12 hours
Benefits and risks of thrombolytics therapy were reviewed
Patient has mild tachycardia and no hypotension-currently risks of aggressive thrombolytic therapy outweigh benefits
Bedrest �24 hours
DVT prophylaxis-on full anticoagulation
Early nutrition
Early mobilization
Reviewed with nursing as well as hospitalist
The patient last saw Dr. Mcguire 04/22/2025 and has an appointment 07/24/2025 at 11:45 AM
Critical care statement: A total of 55 minutes of critical care time was provided for this patient today. This includes management of unstable vital signs, evaluation for thrombolytic therapy, management of large pulmonary embolism, evaluation of
the patient at bedside, reviewing the patient's pertinent medical records including radiographs, microbiology, laboratory evaluations, and discussion with primary team, consultants, pharmacy, and critical care nursing.
Diagnostic data:
CT chest 06/23/2025-multiple bilateral pulmonary emboli with moderate clot burden and mild right heart strain
Echocardiogram 01/03/2024-EF 55-60%, grade 1 diastolic dysfunction, possible right ventricular free wall thickening
PFT 04/22/2025-FEV1 1.32 L - 67%, FVC 2.52 L - 80%, TLC 93%, DLCO/VA 75%
6MWT 02/29/24: At rest, O2 100% on room air, heart rate 70. With ambulation, O2 noelle 99%, max heart rate 97. 7/10 on dyspnea scale. Ambulated 750 feet.
PSG 03/21/19: AHI 44.3 events/hr, desaturation noelle 76% PSG 03/21/19: AHI 44.3 events/hr, desaturation noelle 76%
Data Reviewed
-
PFT: Report reviewed by me
EKG: Report reviewed by me
Radiology: Image personally visualized and interpreted and Report reviewed by me
CT Scan: Image personally visualized and interpreted and Report reviewed by me
Medical Tests (Nuc Med, Echo etc): Report reviewed by me
Labs: Labs reviewed by me
Old Records: Reviewed
Total Time Spent with Patient (in minutes): 55
--- NOTE | 2025-06-24 10:53 | CM ---
I.A: Completed By DANIEL Shields
Patient lives alone in a Basement Apartment with 2 ERMA, 1 STI.
DME: Has a cane, has a CPAP via '[employer]', and a Nebulizer
PCP: Dr. Jay Elliott, but said she has Dr. Lynn and a Dr. Lui Leos
Pharmacy: [facility]
Patient has transportation home. Hospitalist asked to run AmVac starter kit, it is $11.20 at [facility] ready tomorrow, Hospitalist and patient aware. PLAN: Anticipate Home No Needs.
--- NOTE | 2025-06-24 14:00 | PTCARENOTE ---
Patient AAOx3. 2L NC, sats 94%. VSS. NSR on monitor. SHAHID. Up in chair since 1030. Heparin drip infusing per protocol. Patient with occasional pain to left elbow injury, sling intact, PRN tylenol helping. Patient making needs known, family at
bedside. Will continue to closely monitor.
[2025-06-24 14:39] LABS: APTT 76.9 Sec (23.4-35.0)
--- NOTE | 2025-06-24 15:02 | W.PN.HOSP.TC ---
Today's Communication/Plan
-
Assessment / Plan
Assessment / Plan
General: No Apparent Distress, Comfortable and Conversant
HEENT: NormoCephalic, Moist mucous membranes, nasal cannula in place
Respiratory: Clear and Non Labored Respirations
Cardiac: S1/S2 and Regular Rhythm; No Rub or Gallop
GI: Soft, Non Tender, Non Distended and Normal Bowel Sounds
Musculoskeletal: Mild right calf TTP
Skin: Warm and dry
: NO Monk
Neuro: Awake, Alert, Nonfocal/grossly intact
Psych: Calm and Intact Judgment/Insight
Ms. Mcdonough is a 80-year-old female with a medical history of COPD, hypertension, and PE who presented for evaluation of progressively worsening shortness of breath that was significantly worse with exertion. She was found to have multiple bilateral
pulmonary emboli. She was started on anticoagulation with IV heparin and admitted for further evaluation and management.
Pulmonary embolism:
- Lower extremity Doppler shows occlusive thrombus in the right peroneal and posterior tibial veins
- Pulmonary hypertension noted on echocardiogram
- Continuing anticoagulation with IV heparin, likely transition to Eliquis tomorrow
- Appreciate pulmonology guidance
- Continue supplemental oxygen as needed, not on O2 at baseline, does follow-up with Dr. Mcguire for COPD as an outpatient, next appointment 07/24/2025 at 11:45 AM
Leukocytosis:
- Likely reactive, no evidence of acute infection
- Monitor
Elevated troponin:
- Suspect secondary to acute pulmonary embolism
- Troponins stable, no evidence of ACS
COPD:
- No evidence of acute exacerbation
- Continue scheduled albuterol nebulizer and to Tropium inhaler
- Continue supplemental oxygen as needed, not on O2 at baseline, does follow-up with Dr. Mcguire for COPD as an outpatient, next appointment 07/24/2025 at 11:45 AM
Hypertension:
- Continue home lisinopril 10 mg p.o. daily
EVAN:
- CPAP at night
DVT prophylaxis: IV heparin
CODE STATUS: CPR, no intubation
Anticipated Discharge: 24 - 48 hours
Subjective/Interval History
-
Date of Service: June 24, 2025
Patient was seen and examined at bedside this morning. Noticeably dyspneic at rest requiring supplemental oxygen via nasal cannula which she does not use at baseline.
Objective Data
-
Labs:
Laboratory Results
06/24/25 06/24/25 06/24/25
03:49 14:18 20:50
WBC 13.3 H
Hgb 11.3 L
Hct 33.0 L
Plt Count 196
APTT > 200 H* 76.9 H Pending
Vital Signs:
Vital Signs
Temp Pulse Resp BP Pulse Ox
97.5 F 89 16 152/85 97
06/24/25 11:25 06/24/25 10:00 06/24/25 10:00 06/24/25 10:00 06/24/25 10:00
I&O
06/23/25 06/24/25 06/25/25
06:59 06:59 06:59
Intake Total 180 / 180
Balance 180 / 180
Review of Systems
-
History Source: Patient
All other systems: Reviewed and negative
Respiratory: Reports Trouble Breathing
Physical Exam
-
General: No Apparent Distress
[2025-06-24] MEDS: HEPARIN 25000 UNITS/250 ML IV (16:13)
[2025-06-24] MEDS: SINGULAIR 10 MG PO (20:47)
[2025-06-24 21:35] LABS: APTT 48.6 Sec (23.4-35.0)
[2025-06-24] MEDS: HEPARIN 8000 UNITS IV (21:49)
[2025-06-25] VITALS (13 sets, daily range): BP systolic 122–170; BP diastolic 69–104; PULSE 79; O2SAT 94
--- NOTE | 2025-06-25 03:29 | DOWNTIME ---
There was a [employer] Client Permit Coordinator Downtime on 06/25/2025 from 0100 to 06/25/2025 at 0255. Downtime documentation of patient's care, including medication administrations, has been reconciled in the electronic record per guidelines. Refer to the
patient's paper chart under the miscellaneous tab to see printed paper medication records and downtime forms.
--- NOTE | 2025-06-25 05:33 | PTCARENOTE ---
romeo patient ptt and morning labs at 0400. Results still not posted by 0515. Called lab and lab said that don't have the labs. Called biomed to track where labs ended and biomed said the tube made it to the lab. Lab still saying they don't have the
labs. will need to redraw.
[2025-06-25 06:04] LABS: Hematocrit 32.1 % (37.0-47.0); Hemoglobin 10.8 g/dL (12.0-16.0); Mean Corp Hgb Conc. 33.6 g/dL (33.0-37.0); Mean Corpuscular Volume 90.9 fL (81.0-99.0); Platelet Count 200 10^3/uL (130-400); Red Cell Dist. Width 13.2 % (11.5-14.5)
[2025-06-25 06:34] LABS: APTT > 200 Sec (23.4-35.0)
[2025-06-25] MEDS: VENTOLIN NEBULES 2.5 MG INH ×4 (07:22→19:14)
[2025-06-25] MEDS: SPIRIVA RESPIMAT 2.5 MCG 2 PUFF INH (07:23)
[2025-06-25] MEDS: ZESTRIL 10 MG PO (08:19)
[2025-06-25] MEDS: VITAMIN D3 (cholecalciferol) 50 MCG PO (08:19)
[2025-06-25] MEDS: ZYRTEC 10 MG PO (08:19)
--- NOTE | 2025-06-25 09:20 | W.PN.PUL.V3 ---
Today's Communication / Plan
-
Control anticoagulation to Eliquis
Check rest and exercise potential supplemental oxygen needs
Consider transfer to telemetry-monitor for tachycardia and hypotension with exertion
Outpatient pulmonary follow-up
Assessment
-
80-year-old former smoking female with a history of COPD, hypertension, EVAN/CPAP, obesity, hypertension, lipidemia, insomnia who states she had a 'small clot in her lungs' postop knee surgery presented with increasing shortness of breath, dyspnea on
exertion, and found to have clot burden pulmonary emboli-pulmonary consulted for pulmonary emboli 06/24/2025.
Bilateral significant clot burden pulmonary emboli
Suspect provoked-sedentary after left elbow injury
PESI [id number] IV-high risk previous
Provoked 'small PE after knee surgery
Mildly elevated troponin-0.5, proBNP-5140
Mild leukocytosis
Atabby-etpmujykuw-xvfyhjsaaz 11.3
Mild hyperglycemia
Conditions present prior to admission:
COPD-follows Maintained on albuterol, nebulizers-Brovana and Yupelri and azithromycin 250 mg every other day, declined pulmonary rehab
Seasonal allergies
Former smoker
History of pulmonary embolism-postop knee
Pulmonary nodule-right lower lobe 2019 seen in [place]-no further testing needed
GERD
Diverticulosis
EVAN/CPAP-also on Nuvigil for persistent daytime some
Gastroparesis.
Hypertension.
Hyperlipidemia.
Fatty liver.
Polyneuropathy.
Chronic constipation.
Chronic insomnia.
Hiatal hernia.
Interstitial cystitis.
Appendectomy. Cholecystectomy. Colon surgery. Hysterectomy. Lumpectomy. Right knee replacement.
Plan
History consistent with probable provoked pulmonary embolism but at least 2 weeks duration post fall/left elbow injury
Radiographs, echocardiogram, pulmonary function testing and sleep studies are summarized below
Maintain on telemetry-significant shortness of breath with minimal exertion-currently on 2 L - 95% saturation
Will need to check rest and exercise oximetry on room air to see if she needs temporary outpatient supplemental oxygen
Supplemental oxygen as needed-currently on 2 L - 95% saturation at rest
Aspiration precautions
Incentive spirometry
CT chest personally reviewed-summarized below
Echocardiogram 06/24/2025-EF 50-55%, moderate aortic regurgitation, moderate pulmonary hypertension-PA systolic estimated 53
Lower extremity ultrasound 06/24/2025-occlusive thrombus in the right peroneal and posterior tibial veins, no evidence for DVT in the left lower extremity
May need eventual hypercoagulable workup-suspect provoked clot, however, this is her second clot-first 1 likely provoked postop knee surgery
Full PESI summarized above
Convert anticoagulation to Eliquis
Increase activity
DVT prophylaxis-on full anticoagulation
Nutrition
Begin ambulation under supervision
Stable for transfer to telemetry-pulmonary will continue to follow
Reviewed with nursing
The patient last saw Dr. Mcguire 04/22/2025 and has an appointment 07/24/2025 at 11:45 AM
Diagnostic data:
CT chest 06/23/2025-multiple bilateral pulmonary emboli with moderate clot burden and mild right heart strain
Echocardiogram 01/03/2024-EF 55-60%, grade 1 diastolic dysfunction, possible right ventricular free wall thickening
PFT 04/22/2025-FEV1 1.32 L - 67%, FVC 2.52 L - 80%, TLC 93%, DLCO/VA 75%
6MWT 02/29/24: At rest, O2 100% on room air, heart rate 70. With ambulation, O2 noelle 99%, max heart rate 97. 7/10 on dyspnea scale. Ambulated 750 feet.
PSG 03/21/19: AHI 44.3 events/hr, desaturation noelle 76% PSG 03/21/19: AHI 44.3 events/hr, desaturation noelle 76%
Subjective Data
-
Date of Service:
Date of Service: June 25, 2025
Chief Complaint: Pulmonary Follow Up and Dyspnea Follow Up
Subjective:
Complaining of significant shortness of breath with minimal exertion, no chest pain, pleurisy, chest congestion, productive cough, abdominal pain or increase in her leg swelling
Review of Systems
General: Other (Per HPI)
Objective Data
Data Reviewed
Vital Signs / I&O:
Vital Signs
Temp Pulse Resp BP Pulse Ox
97.7 F 85 20 122/73 97
06/25/25 03:00 06/25/25 08:19 06/25/25 07:27 06/25/25 08:19 06/25/25 07:27
Intake and Output
06/24/25 06/25/25 06/26/25
06:59 06:59 06:59
Intake Total 180 / 180
Output Total 250 / 250
Balance -70 / -70
SaO2: 97
Nasal Cannula flow liters per minute: 2
Physical Exam
General: Respiratory Distress (n) and Comfortable
HEENT: Normocephalic, Anicteric and Moist Mucous Membranes
Cardiovascular: Regular Rhythm, Rub (n), JVD (n) and Peripheral Edema
Respiratory: Wheeze (n), Crackles, Rhonchi (n), Non-Labored Respirations, Accessory Resp Muscle Use (n) and Stridor (n)
GI: Soft, Non Distended and Non Tender
Neurology: Awake, Alert and No Motor Deficits
Skin: Warm, Good Color, Cyanosis (n), Jaundice (n) and Rash (n)
Labs/Micro/Reports
Lab Data
06/25/25 05:33
06/23/25 16:52
Laboratory Results
06/24/25 06/24/25 06/25/25
14:18 21:16 04:10
APTT 76.9 H 48.6 H > 200 H*
06/25/25
05:33
APTT Cancelled
[2025-06-25] MEDS: ELIQUIS 10 MG PO ×2 (09:27→20:35)
--- NOTE | 2025-06-25 11:31 | PTCARENOTE ---
Patient called RN into the room reporting that her throat felt scratchy and her heart felt like it was racing. Pt medicated with Eliquis just prior to this, see MAR. Pt reports that 'a lot of medications don't agree with me' and she thinks she is
having a reaction. Pt reassured her heart rate was within normal range. Pt's throat was slightly red on the right side but denies feeling like it was closing. Patient also states that she has a lot of anxiety when starting a new medication. Patient
denied any other allergic reaction symptoms. TT to , who ordered Benadryl IV, however, he came to bedside and patient then reported she felt better. advised to hold Benadryl. Assessment, care and VS as charted.
[2025-06-25] MEDS: TYLENOL 650 MG PO ×2 (12:17→18:41)
--- NOTE | 2025-06-25 14:36 | W.PN.HOSP.TC ---
Addendum entered and electronically signed by German Tsai DO 06/26/25 15:34:
Diagnosis clarification:
- DVT is acute
- Troponin elevation is due to type II [place], demand ischemia
- Patient does not have cor pulmonale
Original Note:
Today's Communication/Plan
-
Assessment / Plan
Assessment / Plan
General: No Apparent Distress, Comfortable and Conversant
HEENT: NormoCephalic, Moist mucous membranes, nasal cannula in place
Respiratory: Clear and Non Labored Respirations
Cardiac: S1/S2 and Regular Rhythm; No Rub or Gallop
GI: Soft, Non Tender, Non Distended and Normal Bowel Sounds
Musculoskeletal: Mild right calf TTP
Skin: Warm and dry
: NO Monk
Neuro: Awake, Alert, Nonfocal/grossly intact
Psych: Calm and Intact Judgment/Insight
Ms. Mcdonough is a 80-year-old female with a medical history of COPD, hypertension, and PE who presented for evaluation of progressively worsening shortness of breath that was significantly worse with exertion. She was found to have multiple bilateral
pulmonary emboli. She was started on anticoagulation with IV heparin and admitted for further evaluation and management.
Pulmonary embolism:
- Lower extremity Doppler showed occlusive thrombus in the right peroneal and posterior tibial veins
- Pulmonary hypertension noted on echocardiogram
- Transitioned to anticoagulation with Eliquis this morning 06/25, patient reported feeling an itchy sensation in her throat after taking medication, however symptoms resolved spontaneously, will monitor closely with further Eliquis doses, Benadryl
ordered as needed
- Appreciate pulmonology guidance, will downgrade to telemetry
- Continue supplemental oxygen as needed, not on O2 at baseline, monitor for home O2 needs prior to discharge, does follow-up with Dr. Mcguire for COPD as an outpatient, next appointment 07/24/2025 at 11:45 AM
Leukocytosis:
- Likely reactive, no evidence of acute infection
- Resolved
Elevated troponin:
- Suspect secondary to acute pulmonary embolism
- Troponins stable, no evidence of ACS
COPD:
- No evidence of acute exacerbation
- Continue scheduled albuterol nebulizer and Tiotropium inhaler
- Continue supplemental oxygen as needed, not on O2 at baseline, does follow-up with Dr. Mcguire for COPD as an outpatient, next appointment 07/24/2025 at 11:45 AM
Hypertension:
- Continue home lisinopril 10 mg p.o. daily
EVAN:
- CPAP at night
DVT prophylaxis: Eliquis
CODE STATUS: CPR, no intubation
Anticipated Discharge: 24 - 48 hours
Subjective/Interval History
-
Date of Service: June 25, 2025
Patient was seen and examined at bedside this morning. She reported itchiness in her throat after starting Eliquis this morning. This symptom resolved on its own without administration of Benadryl.
Objective Data
-
Labs:
Laboratory Results
06/25/25 06/25/25 06/25/25
04:10 05:33 14:30
WBC 9.6 Cancelled
Hgb 10.8 L Cancelled
Hct 32.1 L Cancelled
Plt Count 200 Cancelled
APTT > 200 H* Cancelled Cancelled
Vital Signs:
Vital Signs
Temp Pulse Resp BP Pulse Ox
98 F 90 21 154/69 100
06/25/25 11:50 06/25/25 14:16 06/25/25 14:16 06/25/25 14:16 06/25/25 10:28
I&O
06/24/25 06/25/25 06/26/25
06:59 06:59 06:59
Intake Total 180 / 180 480 / 480
Output Total 250 / 250
Balance -70 / -70 480 / 480
Review of Systems
-
History Source: Patient
All other systems: Reviewed and negative
Respiratory: Reports Trouble Breathing
Physical Exam
-
General: No Apparent Distress
--- NOTE | 2025-06-25 16:28 | CM ---
F/U: DANIEL Shields saw PT/OT notes that said Home Health for one and SNF for the other. Met with Patient, she refuses SNF and refuses Home PT, feels that she can get around with her cane well. Patient needs oxygen for home, Hospitalist ordered Home
Oxygen Test, but the patient moved to [facility]. DANIEL Shields already spoke to Edward at [facility] and have the order form ready, just need the Home Oxygen Test completed by Respiratory. The plan is to fax needed documents then have [facility] deliver
protable oxygen for the patient to [place] home. PLAN: Home w/ Home Oxygen.
--- NOTE | 2025-06-25 16:29 | PTCARENOTE ---
Patient transferred to room 436, report given to Gabby.
--- NOTE | 2025-06-25 17:06 | PTCARENOTE ---
pt received as IMU transfer. pt was able to walk to bed from stretcher with single point cane. pt oriented to room and pleasant. no complaints offered at this time
[2025-06-25] MEDS: SINGULAIR 10 MG PO (20:35)
[2025-06-25] MEDS: MOTRIN 600 MG PO (22:17)
[2025-06-26 00:51] VITALS: BP 163/97
--- NOTE | 2025-06-26 01:06 | PTCARENOTE ---
Pt became agitated due to bed alarm being placed for safety at start of shift. Pt requested its removal, stating 'I'm not [age] years old.' Education was provided. Later in the shift, the pt removed the bed alarm and placed it on the chair. Pt was
briefly SHAHID, consistent with baseline during this stay. VS remained stable. Pt returned to baseline status following the incident. [employer] notified.
--- NOTE | 2025-06-26 01:36 | W.PN.UPDATE ---
Update Note
Progress Note Update
pt had 10/10 pain at injured elbow. Pt has sensitivities to many medications. Inquired what pain meds she has been tolerable to i past. Pt unsure. Reviewing chart, back in 2022 pt had been given both norco and tramadol many times without
documentation of ill effects. Initially ordered norco x1 then pt staed to RN that now she remembered it mad her nauseated. Dose not given. One time dose of motrin ordered as she has taken at home. not ideal in setting of eliquis, but needing to make
pt comfortable in the interm.
[2025-06-26 03:26] VITALS: BP 164/81
[2025-06-26 07:30] VITALS: BP 176/100
[2025-06-26] MEDS: SPIRIVA RESPIMAT 2.5 MCG 2 PUFF INH (07:33)
[2025-06-26] MEDS: VENTOLIN NEBULES 2.5 MG INH ×2 (07:33→11:12)
[2025-06-26 08:05] LABS: Hematocrit 31.6 % (37.0-47.0); Hemoglobin 10.7 g/dL (12.0-16.0); Mean Corp Hgb Conc. 33.9 g/dL (33.0-37.0); Mean Corpuscular Volume 93.2 fL (81.0-99.0); Platelet Count 191 10^3/uL (130-400); Red Cell Dist. Width 13.1 % (11.5-14.5)
--- NOTE | 2025-06-26 08:57 | W.PN.PUL.V3 ---
Today's Communication / Plan
-
Home O2
Eliquis for minimum of 6 months
Outpatient pulmonary follow-up
Assessment
-
80-year-old former smoking female with a history of COPD, hypertension, EVAN/CPAP, obesity, hypertension, lipidemia, insomnia who states she had a 'small clot in her lungs' postop knee surgery presented with increasing shortness of breath, dyspnea on
exertion, and found to have clot burden pulmonary emboli-pulmonary consulted for pulmonary emboli 06/24/2025.
Bilateral significant clot burden pulmonary emboli
Suspect provoked-sedentary after left elbow injury
PESI [id number] IV-high risk previous
Provoked 'small PE after knee surgery
Mildly elevated troponin-0.5, proBNP-5140
Mild leukocytosis
Iodqzm-jpzrkqsuie-tkhfdwjqub 11.3
Mild hyperglycemia
Conditions present prior to admission:
COPD-follows Maintained on albuterol, nebulizers-Brovana and Yupelri and azithromycin 250 mg every other day, declined pulmonary rehab
Seasonal allergies
Former smoker
History of pulmonary embolism-postop knee
Pulmonary nodule-right lower lobe 2019 seen in [facility]-no further testing needed
GERD
Diverticulosis
EVAN/CPAP-also on Nuvigil for persistent daytime some
Gastroparesis.
Hypertension.
Hyperlipidemia.
Fatty liver.
Polyneuropathy.
Chronic constipation.
Chronic insomnia.
Hiatal hernia.
Interstitial cystitis.
Appendectomy. Cholecystectomy. Colon surgery. Hysterectomy. Lumpectomy. Right knee replacement.
Plan
History consistent with probable provoked pulmonary embolism but at least 2 weeks duration post fall/left elbow injury
Radiographs, echocardiogram, pulmonary function testing and sleep studies are summarized below
Maintain on telemetry-significant shortness of breath with minimal exertion-currently on 2 L - 95% saturation
Rest and exercise oximetry-room air rest 94%, ambulated 300 feet with a desaturation noelle of 87% requiring 3 L/min to maintain saturations greater than 90%
Aspiration precautions
Incentive spirometry encouraged
CT chest personally reviewed-summarized below
Echocardiogram 06/24/2025-EF 50-55%, moderate aortic regurgitation, moderate pulmonary hypertension-PA systolic estimated 53
Lower extremity ultrasound 06/24/2025-occlusive thrombus in the right peroneal and posterior tibial veins, no evidence for DVT in the left lower extremity
May need eventual hypercoagulable workup-suspect provoked clot, however, this is her second clot-first 1 likely provoked postop knee surgery
Full PESI summarized above
Convert anticoagulation to Eliquis
Increase activity
DVT prophylaxis-on full anticoagulation
Nutrition
Begin ambulation under supervision
Stable for transfer to telemetry-pulmonary will continue to follow
Reviewed with nursing
The patient last saw Dr. Mcguire 04/22/2025 and has an appointment 07/24/2025 at 11:45 AM
Diagnostic data:
CT chest 06/23/2025-multiple bilateral pulmonary emboli with moderate clot burden and mild right heart strain
Echocardiogram 01/03/2024-EF 55-60%, grade 1 diastolic dysfunction, possible right ventricular free wall thickening
PFT 04/22/2025-FEV1 1.32 L - 67%, FVC 2.52 L - 80%, TLC 93%, DLCO/VA 75%
6MWT 02/29/24: At rest, O2 100% on room air, heart rate 70. With ambulation, O2 noelle 99%, max heart rate 97. 7/10 on dyspnea scale. Ambulated 750 feet.
PSG 03/21/19: AHI 44.3 events/hr, desaturation noelle 76% PSG 03/21/19: AHI 44.3 events/hr, desaturation noelle 76%
Subjective Data
-
Date of Service:
Date of Service: June 26, 2025
Chief Complaint: Pulmonary Follow Up and Dyspnea Follow Up
Subjective:
Continues to complain of shortness of breath with minimal exertion, no chest pain, pleurisy, chest congestion, productive cough, some anxiety
Review of Systems
General: Other (Per HPI)
Objective Data
Data Reviewed
Vital Signs / I&O:
Vital Signs
Temp Pulse Resp BP Pulse Ox
97.8 F 78 16 176/100 100
06/26/25 07:30 06/26/25 07:36 06/26/25 07:36 06/26/25 07:30 06/26/25 07:36
Intake and Output
06/25/25 06/26/25 06/27/25
06:59 06:59 06:59
Intake Total 180 / 180 1919
Output Total 250 / 250
Balance -70 / -70 1919
SaO2: 100
Nasal Cannula flow liters per minute: 2
Physical Exam
General: Respiratory Distress (n) and Comfortable
HEENT: Normocephalic, Anicteric and Moist Mucous Membranes
Cardiovascular: Regular Rhythm, Rub (n), JVD (n) and Peripheral Edema
Respiratory: Wheeze (n), Crackles, Rhonchi (n), Non-Labored Respirations, Accessory Resp Muscle Use (n) and Stridor (n)
GI: Soft, Non Distended and Non Tender
Neurology: Awake, Alert and No Motor Deficits
Skin: Warm, Good Color, Cyanosis (n), Jaundice (n) and Rash (n)
Labs/Micro/Reports
Lab Data
06/26/25 07:31
06/23/25 16:52
Laboratory Results
06/25/25
14:30
APTT Cancelled
[2025-06-26] MEDS: ELIQUIS 10 MG PO (09:18)
[2025-06-26] MEDS: ZESTRIL 10 MG PO (09:18)
[2025-06-26] MEDS: ZYRTEC 10 MG PO (09:19)
[2025-06-26] MEDS: VITAMIN D3 (cholecalciferol) 50 MCG PO (09:27)
[2025-06-26 10:12] VITALS: BP 175/99; O2SAT 98
[2025-06-26 11:33] VITALS: BP 168/105
--- NOTE | 2025-06-26 12:03 | CM ---
CM reviewed chart, patient seen bedside.
Clinicals faxed to [facility]- confirmed clinicals received, will deliver O2 bedside.
Patient aware, confirms son will provide transport home this afternoon.
Patient agreeable to referral to [facility] does not travel to patients home address- referral to [facility] and [facility].
IMM verbally reviewed, provided with copy, placed in chart.
CM will continue to follow.
Plan; home with O2 ([employer]), referral to [facility]
--- NOTE | 2025-06-26 12:26 | W.DCSUMMARY ---
Discharge Summary
Discharge Data
Date of Admission: 06/23/25
Date of Discharge: 06/26/25
Total time spent discharging patient (in min): 52
-
Pending Results: No
Hospital Course
Ms. Mcdonough is a 80-year-old female with a medical history of COPD, hypertension, and PE who presented for evaluation of progressively worsening shortness of breath that was significantly worse with exertion. She was found to have multiple bilateral
pulmonary emboli. She was also found to have occlusive thrombus in the right peroneal and posterior tibial veins. She was started on anticoagulation with IV heparin and admitted for further evaluation and management.
She required supplemental oxygen via nasal cannula for hypoxia down to the high 70s-low 80s with exertion. Her oxygen levels appropriately increased to the low to mid 90s on 3 L via nasal cannula with remained stable even with exertion. Her
anticoagulation was transitioned to Eliquis which she will continue for minimum of 6 months. She will require home oxygen at discharge which can be titrated as able. She will need close follow-up with her primary care physician and with her
shipmaster, Dr. Mcguire, with whom she has an appointment on 07/24/2025 at 11:45 AM.
General: No Apparent Distress, Comfortable and Conversant
HEENT: NormoCephalic, Moist mucous membranes, nasal cannula in place
Respiratory: Clear and Non Labored Respirations
Cardiac: S1/S2 and Regular Rhythm; No Rub or Gallop
GI: Soft, Non Tender, Non Distended and Normal Bowel Sounds
Musculoskeletal: Mild right calf TTP
Skin: Warm and dry
: NO Monk
Neuro: Awake, Alert, Nonfocal/grossly intact
Psych: Calm and Intact Judgment/Insight
Discharge Plan
-
Patient Disposition: Home (Routine Discharge)
Discharge Diagnosis/Procedures: Bilateral pulmonary emboli, acute hypoxic respiratory failure
Activity Restrictions/Additional Instructions:
You were admitted for evaluation of difficulty breathing. You were found to have blood clots in both of your lungs. You were started on anticoagulation and supplemental oxygen. You will be continued on anticoagulation with Eliquis for the
foreseeable future. You will take a loading dose of 10 mg twice daily for 7 days followed by 5 mg twice daily thereafter. You are currently requiring supplemental oxygen via nasal cannula which is being provided for you at home. You can be
titrated off of this supplemental oxygen as able. You will need close follow-up with your primary care physician and with your shipmaster for ongoing management.
Referrals:
Jay Thompson DO [Family Provider, Family Practice]
Simon Wan MD [Active, Pulmonary Medicine]
Referral Note: As scheduled
Prescriptions:
New
Eliquis DVT-PE Treat 30D Start 5 mg (74 tabs) tablets,dose pack
See Rx Instructions .ROUTE .COMPLEX Qty: 74 0RF
Rx Instructions:
orally per package directions
Continued
albuterol sulfate 90 mcg/actuation Hfa Aerosol Inhaler
2 puff INHALATION R Q6HPRN PRN (Reason: sob/wheezing)
cetirizine [Zyrtec] 10 mg Tablet
10 mg PO DAILY
lisinopril 10 mg Tablet
10 mg PO DAILY
montelukast [Singulair] 10 mg Tablet
10 mg PO HS
gabapentin 100 mg Capsule
200 mg PO DAILYPRN PRN (Reason: mild pain)
ibuprofen 600 mg Tablet
600 mg PO TIDPRN PRN (Reason: mild pain)
arformoterol 15 mcg/2 mL Solution For Nebulization
15 mcg INHALATION R BID
cholecalciferol (vitamin D3) [Vitamin D3] 50 mcg (2,000 unit) Capsule
50 mcg PO DAILY
Yupelri 175 mcg/3 mL Solution For Nebulization
175 mcg INHALATION R DAILY@1200
elderberry fruit 350 mg Capsule
350 mg PO HS
Discharge Orders:
Discharge Patient (As Directed); Ordered 06/26/25
Ordered By: German Tsai
Discharge Date and Time
Print Language: THAI
--- NOTE | 2025-06-26 15:04 | PN.CDI ---
CDI
- -
CDI:
Physician Documentation Request
Admit Date: 06/23/25 22:01
Dear Doctor Eulalio,
Patient found to have pulmonary embolism.
Pulmonary notes indicate 'significant clot burden '
06/24 echo reports : 'Moderate tricuspid regurgitation with moderate pulmonary hypertension. Right atrium is normal size and structure, Right ventricle size and systolic function are within normal limits.'
Please provide further specificity to the pulmonary embolism diagnosis:
with cor pulmonale
without cor pulmonale
Other
Use of terms such as suspected, likely, concern for, or probable (associated with a specific diagnosis that is being evaluated, monitored, or treated as if it exists) are acceptable and can be coded in the inpatient setting, when documented at the
time of discharge.
Thank you,
Alexandria Moya RN, BSN
CDI Specialist
tiger text
Please use your independent medical judgment in providing your response.
--- NOTE | 2025-06-26 15:11 | PN.CDI ---
CDI
- -
CDI:
Physician Documentation Request
Admit Date: 06/23/25 22:01
Dear Doctor Eulalio,.
Patient found to have pulmonary embolism.
Troponin noted to be elevated.
Progress note states 'Elevated troponin:Suspect secondary to acute pulmonary embolism'
Could you provide a diagnosis that supports the above lab abnormalities and additional evaluation/monitoring:
Non-ischemic myocardial injury
Type II [place] -demand ischemia
Other
Use of terms such as suspected, likely, concern for, or probable (associated with a specific diagnosis that is being evaluated, monitored, or treated as if it exists) are acceptable and can be coded in the inpatient setting, when documented at the
time of discharge.
Thank you,
Alexandria Moya RN, BSN
CDI Specialist
tiger text
Please use your independent medical judgment in providing your response.
--- NOTE | 2025-06-26 15:14 | PN.CDI ---
CDI
- -
CDI:
Physician Documentation Request
Admit Date: 06/23/25 22:01
Dear Doctor Eulalio,
Patient admitted with pulmonary embolism.
Also found to have 'Lower extremity Doppler showed occlusive thrombus in the right peroneal and posterior tibial veins'
Pleaser clarify which of the following accurately represents the acuity of the vein thrombus:
____ Acute
Acute on Chronic
Chronic
____ Other
Use of terms such as suspected, likely, concern for, or probable (associated with a specific diagnosis that is being evaluated, monitored, or treated as if it exists) are acceptable and can be coded in the inpatient setting, when documented at the
time of discharge.
Thank you,
Alexandria Moya RN, BSN
CDI Specialist
tiger text
Please use your independent medical judgment in providing your response.
== END 2025-06-26 14:11 | disposition home health service (06) | DRG 175 ==
LOC: 4 WEST ACU 22:01
PROVIDERS: Emergency Medicine; Physician Assistant; Registered Nurse; ADMITTING PHYSICIAN Hospitalist; ATTENDING PHYSICIAN Internal Medicine; EMERGENCY PHYSICIAN Emergency Medicine; FAMILY PHYSICIAN Family Medicine; OTHER PHYSICIAN Internal Medicine Critical Care Medicine
DX: I26.99 Other pulmonary embolism without acute cor pulmonale (principal); I21.A1 Myocardial infarction type 2; J96.01 Acute respiratory failure with hypoxia; I82.451 Acute embolism and thrombosis of right peroneal vein; I82.441 Acute embolism and thrombosis of right tibial vein; G47.33 Obstructive sleep apnea (adult) (pediatric); E66.09 Other obesity due to excess calories; I10 Essential (primary) hypertension; Z44.9 Encounter for fitting and adjustment of unspecified external prosthetic device; Z87.891 Personal history of nicotine dependence; K58.1 Irritable bowel syndrome with constipation; E78.5 Hyperlipidemia, unspecified; K76.0 Fatty (change of) liver, not elsewhere classified; F51.04 Psychophysiologic insomnia; E11.43 Type 2 diabetes mellitus with diabetic autonomic (poly)neuropathy; K31.84 Gastroparesis; Z88.2 Allergy status to sulfonamides; Z82.5 Family history of asthma and other chronic lower respiratory diseases; Z86.711 Personal history of pulmonary embolism; K57.30 Diverticulosis of large intestine without perforation or abscess without bleeding; Z96.651 Presence of right artificial knee joint; D64.9 Anemia, unspecified; E11.65 Type 2 diabetes mellitus with hyperglycemia; N30.10 Interstitial cystitis (chronic) without hematuria; Z79.899 Other long term (current) drug therapy; Z90.710 Acquired absence of both cervix and uterus
CPT/HCPCS: 71275; 80053; 83880; 84484; 85025; 85027; 85379; 85610; 85730; 93005; 93306; 93970; 94640; 94660; 96374; 96375; 97110; 97116; 97163; 97167; 99291; Q9967